=== PATIENT | female | born 1955 | race Caucasian/White ===

== ENCOUNTER 2016-02-22 15:40 | Inpatient (IN) | payer MEDICARE ==
[~2016-02-22] VITALS: Ht 142.2 cm; Wt 67.6 kg
[2016-02-22] MEDS ORDERED: SODIUM CHLORIDE 0.9% 1,000 ML ONE (20:55)
[2016-02-22] MEDS ORDERED: CEFTRIAXONE 1 GM VIAL ONE ×2 (21:58→22:00)
[2016-02-22] MEDS ORDERED: ATROPINE 1 MG/10 ML SYRINGE IV ONE (21:59)
[2016-02-22] MEDS ORDERED: SODIUM CHLORIDE 0.9% 100 ML IV ONE (21:59)
[2016-02-22] MEDS ORDERED: SODIUM CHLORIDE 0.9% 1,000 ML IV SCH (22:20)
[2016-02-22] MEDS ORDERED: SALINE FLUSH 10 ML FLUSH PRN (22:20)
[2016-02-23 01:15] VITALS: Ht 142.2 cm; Wt 67.6 kg
[2016-02-23] MEDS: SALINE FLUSH 10 ML FLUSH SCH ×3 (02:41→20:00)
[2016-02-23] MEDS: ALPRAZOLAM 1 MG TAB PO PRN ×3 (02:41→19:55)
[2016-02-23 02:50] VITALS: BP_SYST 98; RESP 18; TEMP 97.8
[2016-02-23] MEDS: METRONIDAZOLE 500MG/100ML 100 ML IV SCH ×3 (04:06→16:52)
[2016-02-23] MEDS: SODIUM CHLORIDE 0.9% FLUSH BAG 500 ML IV SCH (06:00)
[2016-02-23] MEDS ORDERED: PANTOPRAZOLE 40 MG TAB PO SCH (07:00)
[2016-02-23 07:13] VITALS: BP_SYST 113; RESP 16; TEMP 97.9
[2016-02-23] MEDS ORDERED: ONDANSETRON 4 MG VIAL IV PUSH ONE (07:40)
[2016-02-23] MEDS ORDERED: KETAMINE INJ 50 MG/ML VIAL IV ONE (07:40)
[2016-02-23] MEDS ORDERED: LIDOCAINE 2% SYR 5 ML IV ONE (07:40)
[2016-02-23] MEDS ORDERED: GLYCOPYRROLATE 0.2 MG/ML VIAL IV ONE (07:40)
[2016-02-23] MEDS ORDERED: PROPOFOL 20 ML PER ML IV ONE (07:40)
[2016-02-23] MEDS: LEVOTHYROXINE 0.075 MG TAB PO SCH (08:56)
[2016-02-23] MEDS ORDERED: METOPROLOL XL 50 MG TAB PO SCH (09:00)
[2016-02-23] MEDS: CEFTRIAXONE 1 GM in SODIUM CHLORIDE 0.9% 50 ML IV SCH (10:29)
[2016-02-23] MEDS: ACETAMINOPHEN 325 MG TAB PO PRN (10:30)
[2016-02-23 12:10] VITALS: BP_SYST 116; RESP 16; TEMP 98.3
[2016-02-23] MEDS ORDERED: KCL CR 20 MEQ TAB PO ONE (13:25)
[2016-02-23] MEDS: OMNIPAQUE 240 MG/ML, 50 ML PO SCH ×2 (14:23→18:02)
[2016-02-23] MEDS: ONDANSETRON 4 MG VIAL IV PUSH PRN (14:23)
[2016-02-23] MEDS: FAMOTIDINE 20 MG INJ IV SCH ×2 (14:36→21:16)
[2016-02-23 15:06] VITALS: BP_SYST 99; RESP 16; TEMP 97.5
[2016-02-23] MEDS: SODIUM CHLORIDE 0.9% 1,000 ML IV SCH (17:46)
[2016-02-23 19:24] VITALS: BP_SYST 137; RESP 16; TEMP 97.6
[2016-02-23] MEDS ORDERED: CITALOPRAM 20 MG TAB PO SCH (21:00)
[2016-02-23 23:52] VITALS: BP_SYST 105; RESP 16; TEMP 97.9
[2016-02-24] MEDS: METRONIDAZOLE 500MG/100ML 100 ML IV SCH ×3 (00:54→16:32)
[2016-02-24 04:01] VITALS: BP_SYST 124; RESP 16; TEMP 97.4
[2016-02-24] MEDS: SODIUM CHLORIDE 0.9% FLUSH BAG 500 ML IV SCH (06:00)
[2016-02-24] MEDS: LEVOTHYROXINE 0.075 MG TAB PO SCH (06:23)
[2016-02-24] MEDS: ALPRAZOLAM 1 MG TAB PO PRN ×2 (06:24→16:32)
[2016-02-24 07:27] VITALS: BP_SYST 134; RESP 18; TEMP 97.5
[2016-02-24] MEDS: SALINE FLUSH 10 ML FLUSH SCH ×2 (07:34→20:00)
[2016-02-24] MEDS: CEFTRIAXONE 1 GM in SODIUM CHLORIDE 0.9% 50 ML IV SCH (08:43)
[2016-02-24] MEDS: FAMOTIDINE 20 MG INJ IV SCH ×2 (08:44→20:31)
[2016-02-24] MEDS: SODIUM CHLORIDE 0.9% 1,000 ML IV SCH (08:56)
[2016-02-24 10:54] VITALS: BP_SYST 146; RESP 18; TEMP 97.8
[2016-02-24] MEDS: DEXTROSE 5% SALINE 0.45% 1,000 ML IV SCH (13:17)
[2016-02-24 15:22] VITALS: BP_SYST 133; RESP 18; TEMP 98
[2016-02-24] MEDS: ACETAMINOPHEN 325 MG TAB PO PRN (16:33)
[2016-02-24] MEDS: ONDANSETRON 4 MG VIAL IV PUSH PRN (18:30)
[2016-02-24 19:34] VITALS: BP_SYST 135; RESP 18; TEMP 97.4
[2016-02-25] VITALS (8 sets, daily range): BP systolic 124–158; RESP 16–22; TEMP 97.2–97.8
[2016-02-25] MEDS: METRONIDAZOLE 500MG/100ML 100 ML IV SCH ×3 (00:20→15:39)
[2016-02-25] MEDS: ACETAMINOPHEN 325 MG TAB PO PRN ×2 (03:20→09:35)
[2016-02-25] MEDS: ALPRAZOLAM 1 MG TAB PO PRN ×2 (03:20→15:51)
[2016-02-25] MEDS: SODIUM CHLORIDE 0.9% FLUSH BAG 500 ML IV SCH (05:35)
[2016-02-25] MEDS: LEVOTHYROXINE 0.075 MG TAB PO SCH (06:40)
[2016-02-25] MEDS: DEXTROSE 5% SALINE 0.45% 1,000 ML IV SCH (07:31)
[2016-02-25] MEDS: SALINE FLUSH 10 ML FLUSH SCH ×2 (07:41→20:47)
[2016-02-25] MEDS: FAMOTIDINE 20 MG INJ IV SCH (07:56)
[2016-02-25] MEDS: CEFTRIAXONE 1 GM in SODIUM CHLORIDE 0.9% 50 ML IV SCH (09:08)
[2016-02-25] MEDS ORDERED: FLUCONAZOLE 150 MG TAB PO ONE (09:30)
[2016-02-25] MEDS ORDERED: GUAIFENESIN 10 ML UDC PO PRN (09:35)
[2016-02-25] MEDS: DUONEB INH SCH ×4 (10:16→23:00)
[2016-02-25] MEDS: PANTOPRAZOLE 40 MG TAB PO SCH (10:40)
[2016-02-25] MEDS: ACETAMIN/BUTALB/CAFF PO PRN (13:17)
[2016-02-25] MEDS: ONDANSETRON 4 MG VIAL IV PUSH PRN (14:13)
[2016-02-25] MEDS: SACCHA BOULARDII 250MG CAP PO SCH ×2 (15:39→20:47)
[2016-02-26] MEDS: METRONIDAZOLE 500MG/100ML 100 ML IV SCH ×3 (00:08→16:30)
[2016-02-26] MEDS: ALPRAZOLAM 1 MG TAB PO PRN ×3 (00:08→23:29)
[2016-02-26] MEDS: ONDANSETRON 4 MG VIAL IV PUSH PRN ×2 (02:07→19:56)
[2016-02-26 04:28] VITALS: BP_SYST 139; RESP 18; TEMP 98
[2016-02-26] MEDS: SODIUM CHLORIDE 0.9% FLUSH BAG 500 ML IV SCH (06:02)
[2016-02-26] MEDS: DUONEB INH SCH ×5 (06:44→22:34)
[2016-02-26] MEDS: PANTOPRAZOLE 40 MG TAB PO SCH (06:46)
[2016-02-26] MEDS: LEVOTHYROXINE 0.112 MG TAB PO SCH (06:46)
[2016-02-26] MEDS: ACETAMINOPHEN 325 MG TAB PO PRN (06:48)
[2016-02-26] MEDS ORDERED: BISACODYL EC 5 MG TAB PO ONE (07:35)
[2016-02-26 07:45] VITALS: BP_SYST 165; RESP 19; TEMP 97.9
[2016-02-26] MEDS: SALINE FLUSH 10 ML FLUSH SCH ×2 (09:21→19:56)
[2016-02-26] MEDS: CEFTRIAXONE 1 GM in SODIUM CHLORIDE 0.9% 50 ML IV SCH (09:22)
[2016-02-26] MEDS: SACCHA BOULARDII 250MG CAP PO SCH ×3 (09:23→21:35)
[2016-02-26] MEDS ORDERED: Furosemide 20 MG/2 ML VIAL IV ONE (10:45)
[2016-02-26 10:46] VITALS: BP_SYST 157; RESP 19; TEMP 97.5
[2016-02-26] MEDS: KCL CR 10 MEQ CAP PO SCH ×2 (10:50→21:35)
[2016-02-26 14:40] VITALS: BP_SYST 141; RESP 19; TEMP 98.1
[2016-02-26] MEDS ORDERED: PEG/E-LYTE 4,000 ML BTL PO ONE (15:00)
[2016-02-26 20:11] VITALS: BP_SYST 143; RESP 18; TEMP 98.4
[2016-02-26] MEDS: MICONAZOLE 200 MG VAG SCH ×2 (21:35→23:00)
[2016-02-26 22:59] VITALS: BP_SYST 134; RESP 18; TEMP 98.7
[2016-02-26] MEDS: ACETAMIN/BUTALB/CAFF PO PRN (23:31)
[2016-02-27] VITALS (10 sets, daily range): BP systolic 107–162; RESP 12–18; TEMP 97–98.5
[2016-02-27] MEDS: METRONIDAZOLE 500MG/100ML 100 ML IV SCH ×4 (01:03→23:08)
[2016-02-27] MEDS ORDERED: PEG/E-LYTE 4,000 ML BTL PO ONE (04:00)
[2016-02-27] MEDS: ACETAMIN/BUTALB/CAFF PO PRN ×2 (06:50→22:01)
[2016-02-27] MEDS: LEVOTHYROXINE 0.112 MG TAB PO SCH (06:50)
[2016-02-27] MEDS: SODIUM CHLORIDE 0.9% FLUSH BAG 500 ML IV SCH (06:50)
[2016-02-27] MEDS: PANTOPRAZOLE 40 MG TAB PO SCH (06:50)
[2016-02-27] MEDS: DUONEB INH SCH ×5 (07:00→22:57)
[2016-02-27] MEDS: SALINE FLUSH 10 ML FLUSH SCH ×2 (08:00→22:02)
[2016-02-27] MEDS: ALPRAZOLAM 1 MG TAB PO PRN ×2 (10:03→18:00)
[2016-02-27] MEDS: SACCHA BOULARDII 250MG CAP PO SCH ×3 (10:04→22:01)
[2016-02-27] MEDS: KCL CR 10 MEQ CAP PO SCH (10:04)
[2016-02-27] MEDS: CEFTRIAXONE 1 GM in SODIUM CHLORIDE 0.9% 50 ML IV SCH (10:05)
[2016-02-27] MEDS ORDERED: Furosemide 20 MG/2 ML VIAL IV ONE (13:10)
[2016-02-27] MEDS: KCL CR 20 MEQ TAB PO SCH ×2 (15:22→22:02)
[2016-02-27] MEDS: MICONAZOLE 200 MG VAG SCH (22:03)
[2016-02-28] MEDS: ALPRAZOLAM 1 MG TAB PO PRN ×2 (02:20→10:59)
[2016-02-28] MEDS: SODIUM CHLORIDE 0.9% FLUSH BAG 500 ML IV SCH (02:20)
[2016-02-28 04:56] VITALS: BP_SYST 139; RESP 18; TEMP 98.5
[2016-02-28] MEDS: LEVOTHYROXINE 0.112 MG TAB PO SCH (06:04)
[2016-02-28] MEDS: PANTOPRAZOLE 40 MG TAB PO SCH (06:04)
[2016-02-28] MEDS: DUONEB INH SCH ×3 (07:00→15:00)
[2016-02-28 07:30] VITALS: BP_SYST 122; RESP 18; TEMP 97.3
[2016-02-28] MEDS: SALINE FLUSH 10 ML FLUSH SCH (08:20)
[2016-02-28] MEDS: METRONIDAZOLE 500MG/100ML 100 ML IV SCH ×2 (08:21→16:00)
[2016-02-28] MEDS: SACCHA BOULARDII 250MG CAP PO SCH ×2 (09:42→16:00)
[2016-02-28] MEDS: KCL CR 20 MEQ TAB PO SCH (09:43)
[2016-02-28] MEDS: CEFTRIAXONE 1 GM in SODIUM CHLORIDE 0.9% 50 ML IV SCH (09:43)
[2016-02-28] MEDS: ACETAMIN/BUTALB/CAFF PO PRN (10:59)
[2016-02-28 11:40] VITALS: BP_SYST 138; RESP 18; TEMP 98.2
[2016-02-28 12:32] VITALS: BP_SYST 122; RESP 18; TEMP 97.3
== END 2016-02-28 18:32 | disposition home or self-care (01) | DRG 690 ==
LOC: ENRESERVTM → ENRESERVDT → ER 15:40 → EMR 22:20 → 3NT 02-23 00:06 → OBSVTOIN 02-23 15:13 → ENPENDDIS 02-23 15:13
PROVIDERS: ADMIT Family Medicine; ATTEND Family Medicine
PROC: 0DB98ZX Excision of Duodenum, Via Natural or Artificial Opening Endoscopic, Diagnostic (ICD-10-PCS; principal; 2016-02-27 07:32)
CPT/HCPCS: 36415; 71010; 74176; 80053; 81001; 82553; 83690; 83735; 84439; 84443; 84484; 84703; 85025; 87040; 87045; 87046; 87077; 87088; 87177; 87186; 87493; 88305; 93005; 94640; 94799; 96365; 96375; 99219; 99233; 99239